=== PATIENT | female | born 1965 | race Caucasian/White ===

== ENCOUNTER 2017-02-11 16:37 | Emergency (ER) | payer OTHER ==
--- NOTE | 2017-02-11 17:11 | EDPHY ---
HPI/HX/ROS/PE/MDM Narrative: CHIEF COMPLAINT: Pain behind her left ear. HISTORY OF PRESENT ILLNESS: The patient is a 51-year-old female presenting with a shooting pain behind her left ear that started this afternoon. The patient fell Friday, 3 days ago, while chasing her dog. She fell and hit her face on the ground. She has bruising to her left cheek, but denies any significant pain. She did not lose consciousness. The patient felt slightly disoriented after the fall but has been able to do some work. Today she developed a shooting pain behind her left ear. She took Advil which improved her pain. She denies ear drainage. No fever, chills, chest pain, shortness of breath, palpitations, vomiting, diarrhea, urinary complaints, headache, lightheadedness. REVIEW OF SYSTEMS: Aside from elements discussed in the HPI, a comprehensive 10-point review of systems was reviewed and is negative. PAST MEDICAL HISTORY: Denies. SOCIAL HISTORY: VITAL SIGNS: Reviewed by me GENERAL: Well-developed, well-nourished, resting comfortably in no respiratory distress. HEENT: No tenderness to mastoids. No pain with movement of the left ear. Eyes: EOMI. Pupils are equal and reactive. No icterus, no injection. Mouth: moist mucous membranes. No erythema or lesions. Neck: supple with no adenopathy. LUNGS: Clear to auscultation bilaterally, no wheezes, rhonchi or rales. CARDIAC: Regular rate and rhythm, no rubs, murmurs or gallops. ABDOMEN: Soft, nontender, nondistended, bowel sounds normal. BACK: No CVA tenderness. EXTREMITIES: No trauma. No edema. Range of motion is normal throughout. NEURO: Alert and oriented, grossly nonfocal. SKIN: Warm and dry, no rash. PSYCHIATRIC: Normal mentation, no agitation. Portions of this note were transcribed by a medical technologist. I personally performed a history, physical exam, medical decision making, and confirmed accuracy of information the transcribed note. ED Course: The patient is a healthy 51-year-old female presenting with acute pain behind her left ear after a fall 3 days ago. The patient has abrasions and bruising to the left face. She did not lose consciousness, but states she felt disoriented. She denies headache. Today she developed pain behind her left ear. On exam she has no mastoid tenderness. No hemotympanum. Patient has abrasions and bruising to the left side of her face. Plan for CT head. Imaging results were called to me by the radiologist, CT head is negative. See the full radiology report in the imaging section. MDM: After history was obtained, and the physical exam performed, a differential for headache was considered including, but not limited to, subarachnoid hemorrhage, post traumatic headache, intracranial hemorrhage, mastoid injury, basilar skull fracture, TMJ pathology, mastoiditis. General Time Seen by Provider: 02/11/17 16:59 Initial Vital Signs: Initial Vital Signs Temperature (C) 36.7 C 02/11/17 16:42 Heart Rate 56 L 02/11/17 16:42 Respiratory Rate 17 02/11/17 16:42 Blood Pressure 119/73 02/11/17 16:42 O2 Sat (%) 97 02/11/17 16:42 O2 Delivery Mode Room Air Allergies/Adverse Reactions: No Known Allergies Allergy (Unverified 02/11/17 16:42) Home Medications: Medication Instructions Recorded NK [No Known Home Meds] 02/11/17 Departure - Departure Disposition: Home, Routine, Self-Care Clinical Impression: Closed head injury Qualifiers: Encounter type: initial encounter Qualified Code(s): S09.90XA - Unspecified injury of head, initial encounter Headache Qualifiers: Headache type: unspecified Headache chronicity pattern: acute headache Intractability: not intractable Qualified Code(s): R51 - Headache Mastoid pain Qualifiers: Laterality: left Qualified Code(s): H92.02 - Otalgia, left ear Condition: Good Instructions: Head Injury (ED) Additional Instructions: Take 600mg Ibuprofen every 6-8 hours as needed for pain. Return to the Emergency Department if you develop severe headache, nausea, confusion, or worsening symptoms. Referrals: Zenobia Hudson MD [Medical Doctor] - As per Instructions ([facility]ute [facility]) Report Scribed for: Tammy Hill Report Scribed by: Alia Ross Date of Report: 02/11/17 Time of Report: 17:13
[2017-02-11 18:56] VITALS: BP 124/75; PULSE 65; RESP 16; TEMP 98.4; O2SAT 95
== END 2017-02-11 18:56 | disposition home or self-care (01) ==
DX: S09.90XA Unspecified injury of head, initial encounter (principal); H92.02 Otalgia, left ear; W18.09XA Striking against other object with subsequent fall, initial encounter

== ENCOUNTER → 2017-06-03 | Outpatient (CLI) | payer OTHER | LOC: BMCIMAGING 07:46 | PROVIDERS: ATTEND Obstetrics & Gynecology Gynecology | DX: Z12.31 Encounter for screening mammogram for malignant neoplasm of breast (principal) | CPT/HCPCS: G0202 ==

== ENCOUNTER → 2018-06-16 | Outpatient (CLI) | payer OTHER | DX: Z12.31 Encounter for screening mammogram for malignant neoplasm of breast (principal) ==